=== PATIENT | male | born 1995 | race Hispanic/Latino ===

== ENCOUNTER 2024-10-27 18:13 | Emergency (ER) | payer SELFPAY ==
[2024-10-27 18:33] VITALS: BP 124/70; PULSE 66; RESP 19; TEMP 36.6; O2SAT 100
--- NOTE | 2024-10-27 18:47 | ED_ITS ---
HPI - Dental/Oral General Chief complaint: Dental/Oral Stated complaint: dental Time Seen by Provider: 10/27/24 18:40 Source: patient (With friend acting as jinrikisha driver per patient request) Mode of arrival: ambulatory Limitations: no limitations History of Present Illness HPI Narrative: Patient presents today complaining of left lower dental pain x1 month, worse over the last 2 days. Denies any additional symptoms to include fever, shortness of breath, difficulty swallowing. Has been taking Tylenol with some relief but currently rates his pain 8/10. He does not have a dentist. Related Data Home Medications ?Medication ?Instructions ?Recorded ?Confirmed ?Last Taken ?Type No Home Medications 10/27/24 Unknown History Allergies Allergy/AdvReac Type Severity Reaction Status Date / Time No Known Allergies Allergy Verified 10/27/24 18:35 Review of Systems Review of Systems: CONSTITUTIONAL: Denies body aches, fever, chills, or sweats. EYES: Denies visual changes, redness, or discharge. ENT: Denies rhinorrhea, congestion, sore throat, or otalgia.+ dental pain CARDIOVASCULAR: Denies chest pain, palpitations, or edema. RESPIRATORY: Denies cough or dyspnea. GASTROINTESTINAL: Denies abdominal pain, nausea, vomiting, or diarrhea. GENITOURINARY: Denies dysuria or hematuria. SKIN: Denies rash, itching, or wounds. MUSCULOSKELETAL: Denies back pain, joint pain, or myalgia. NEUROLOGIC: Denies headache, numbness, tingling, or weakness. PSYCH: Denies depression or anxiety. PMFSH Comments At time of signature, I have reviewed and agree with nursing past medical, surgical, social and family history unless otherwise noted. Please see nursing chart for further information. There is no relevant family history pertinent to the presenting complaint Exam Narrative: GENERAL: Well-appearing, well-nourished, and in no acute distress. HEAD: Normocephalic, atraumatic. EYES: EOMI. No redness or drainage. Conjunctivae normal. ENT: Mucous membranes pink and moist. #17. Is broken in the posterior lateral quadrant with this portion of the tooth missing. No surrounding edema, erythema, or periapical abscess. No facial swelling noted. No trismus. NECK: Normal AROM. CHEST: No respiratory distress. EXTREMITIES: Normal range of motion. No edema. SKIN: Warm, dry, no rash. Capillary refill normal. Normal skin turgor. NEURO: No focal deficits. Alert and oriented x3. Gait steady. PSYCH: Normal affect. No signs of depression or anxiety. Course Course Level of Care: Express Care Visit Vital Signs Vital signs: Vital Signs Temperature 97.9 F 10/27/24 18:33 Pulse Rate 66 10/27/24 18:33 Respiratory Rate 19 10/27/24 18:33 Blood Pressure 124/70 10/27/24 18:33 Pulse Oximetry 100 10/27/24 18:33 Oxygen Delivery Room Air 10/27/24 18:33 Temperature 97.9 F 10/27/24 18:33 Pulse Rate 66 10/27/24 18:33 Respiratory Rate 19 10/27/24 18:33 Blood Pressure 124/70 10/27/24 18:33 Pulse Oximetry 100 10/27/24 18:33 Oxygen Delivery Room Air 10/27/24 18:33 Reviewed MDM - Dental/Oral MDM Narrative Medical decision making narrative: This tooth is fractured. Patient will be placed on a course of amoxicillin for possible infection and has been recommended to follow-up with a dentist as soon as possible. He has been provided contact information for dentists in the area. Anticipatory guidance given. Differential Diagnosis Differential diagnosis: Likely gingival abscess, dental caries, toothache, dental abscess and fracture of tooth Critical Care Time Critical Care Time Critical Care Time: No Discharge Plan Discharge Clinical Impression: Fracture of tooth Qualifiers: Encounter type: initial encounter Fracture type: closed Qualified Code(s): S02.5XXA - Fracture of tooth (traumatic), initial encounter for closed fracture Patient Disposition: Home, Self-Care Condition: Stable Instructions: Antibiotic Form Additional Instructions: [place] diente parece fracturado. [place] la amoxicilina seg?n lo recetado hasta que se la acabe. [place] Tylenol o ibuprofeno para el dolor. Programe sebas vincenzo de seguimiento con un dentista para sebas evaluaci?n y tratamiento adicionales. Hoy en la clinica, avila presi?n arterial super? los 120/80. [place] es lo suficientemente alto jesu para que necesites hacer un seguimiento. Programe sebas vincenzo de seguimiento con avila m?dico lo antes posible para sebas evaluaci?n y tratamiento adicionales. Incluso sebas presi?n arterial superior a 120/80 puede indicar prehipertensi?n. Your tooth appears fractured. Please take the amoxicillin as prescribed until gone. Take Tylenol or ibuprofen for pain. Please make an appointment to follow-up with a dentist for further evaluation and treatment. Your blood pressure was elevated above 120/80 today at Urgent Care. This puts you above the threshold for follow up. Please schedule a followup visit with your personal physician as soon as possible, for further evaluation and treatment. Even blood pressure exceeding 120/80 may indicate pre-hypertension. Patient Language: Turkish Prescriptions: New amoxicillin 875 mg tablet 875 mg PO Q12H 10 Days Qty: 20 0RF No Action No Home Medications Follow-up/Referrals: PHYSICIAN,APPLICATION SECURITY ENGINEER [Primary Care Provider] - Time of Disposition: 18:54
== END 2024-10-27 19:00 | disposition home or self-care (01) ==
PROVIDERS: Emergency Provider Nurse Practitioner
DX: S02.5XXA Fracture of tooth (traumatic), initial encounter for closed fracture (principal); X58.XXXA Exposure to other specified factors, initial encounter
CPT/HCPCS: 99203; G0463